=== PATIENT | female | born 1990 | race Caucasian/White ===

== ENCOUNTER → 2017-10-10 | Outpatient (CLI) | payer OTHER ==
[~2017-10-10] MED LIST: ALBU90OI INH; AMOCLA875 PO; AMOX500 PO; AMPDEX10; AZIT250 PO; BC PILL; BCP; BIRTH CONTOL; CEPH250A; CETI10 PO; CLOM50A PO; CLON.5 PO; CLON1 PO; CODACE30 PO; CRUTCH3 USE; CRUTCH4 USE; DOXY100 PO; DULO30 PO; DULO60; ERYT250 PO; ETHINYL ESTRADIOL; ETONOGESTREL; FAMO20 PO; FLUO20 PO; GUAPSEER PO; HYDACE5 PO; HYDGUAL120 PO; IBUP600 PO; IBUP800 PO; LORA1 PO; METO25ER PO; METO50ER PO; METPHE20 PO; MULVITA; Macrobid 100 M100 MG PO; PHENA100 PO; PRED10 PO; PRED20 PO; QUET200 PO; RXCODACET PO; RXHYDACE PO; SERT50; TRAZ50 PO; [UNRECOGNIZED DRUG - OTHER]
[2017-10-13 15:07] LABS: CHLAMYDIA BY NAA Negative (Negative); GONOCOCCUS BY NAA Negative (Negative); TRICH VAG BY NAA Negative (Negative)
== END | disposition home or self-care (01) ==
LOC: LAB SHORT 14:18 → LAB 14:18
PROVIDERS: Advanced Practice Midwife
DX: Z11.3 Encounter for screening for infections with a predominantly sexual mode of transmission (principal)
CPT/HCPCS: 87491; 87591; 87661

== ENCOUNTER 2018-04-26 08:40 | Inpatient (IN) | payer OTHER ==
[~2018-04-26] VITALS: Ht 170.2 cm; Wt 82.1 kg
[2018-04-26] MEDS ORDERED: ACYC400 PO (14:08)
[2018-04-26] MEDS ORDERED: EXPECTA PRENAT1 EACH PO (14:09)
--- NOTE | 2018-04-26 15:22 | NUR ---
OOB TO BATHROOM BECAME DIZZY, SOHAIL CARE AND SPONGE BATH GIVEN ASSISTED BACK TO BED
--- NOTE | 2018-04-26 17:41 | NUR ---
REPORT TO TEJAL SILVA RN
[2018-04-27 06:13] LABS: Hematocrit 31.8 % (33.0-51.0); Hemoglobin 10.7 g/dL (11.5-16.0); Mean Corpuscular HGB 32.3 pg (26.0-34.0); Mean Corpuscular HGB Conc 33.6 g/dL (31.5-36.5); Mean Corpuscular Volume 96 fL (80-100); Mean Platelet Volume 10.3 fL (9.1-12.4); Platelet Count 197 K/mm3 (150-400); RDW Coefficient Variation 13.2 % (11.7-14.2); RDW Standard Deviation 46.5 fL (35.1-46.3); Red Blood Cell Count 3.31 M/mm3 (3.80-5.20); White Blood Cell Count 17.59 K/mm3 (4.00-11.30)
--- NOTE | 2018-04-27 08:17 | NUR ---
DURING MY ASSESSMENT THIS MORNING I NOTICED THAT PT HAD RED/ SORE NIPPLES. I PROVIDED THE PATIENT WITH EDUCATION REGARDING HEPATITIS C AND TRANSFERRING THE DISEASE TO HER NB THROUGH WITH CRACKED NIPPLES. PT WAS GIVEN FORMULA AND ADVISED TO BREASTFEED THE UNTIL HER NIPPLES ARE HEALED ENOUGH TO CONTINUE . NIPPLE FERGUSON WERE GIVEN ANOTHER FORM OF A BARRIER. LANOLIN AND SOOTHIES AT BEDISDE. PT REPORTED SHE WOULD STILL LIKE TO CONTINUE TO BREASTFEED AFTER EDUCATION WAS PROVIDED.
[2018-04-27] MEDS ORDERED: IBUP800 PO (09:47)
[2018-04-27] MEDS ORDERED: Ferrous Sulfat325 M2 PO (09:48)
--- NOTE | 2018-04-27 13:29 | NUR ---
DISCHARGE INSTRUCTIONS GIVEN. NO QUESTIONS OR CONCERNS AT THIS TIME.
== END 2018-04-27 14:15 | disposition home or self-care (01) | DRG 807 ==
LOC: BC 08:40 → OBS 08:40 → BC 10:11
PROVIDERS: ADMIT Advanced Practice Midwife
PROC: 10E0XZZ Delivery of Products of Conception, External Approach (ICD-10-PCS; principal; 2018-04-26)
PROC: 0HQ9XZZ Repair Perineum Skin, External Approach (ICD-10-PCS; 2018-04-26)
DX: O98.42 Viral hepatitis complicating childbirth (principal); Z37.0 Single live birth; B18.2 Chronic viral hepatitis C; O69.81X0 Labor and delivery complicated by cord around neck, without compression, not applicable or unspecified; O70.0 First degree perineal laceration during delivery; Z3A.41 41 weeks gestation of pregnancy; Z87.891 Personal history of nicotine dependence; Z88.1 Allergy status to other antibiotic agents
CPT/HCPCS: 36415; 85027; J2210; J2590

== ENCOUNTER → 2018-06-08 | Outpatient (CLI) | payer OTHER ==
[~2018-06-08] MED LIST changes: +ACYC400 PO; +EXPECTA PRENAT1 EACH PO; +Ferrous Sulfat325 M2 PO
== END ==
LOC: LAB SHORT 09:34 → LAB 09:34
PROVIDERS: Advanced Practice Midwife
DX: Z01.419 Encounter for gynecological examination (general) (routine) without abnormal findings (principal)
CPT/HCPCS: G0123

== ENCOUNTER → 2018-11-28 | Outpatient (CLI) | payer OTHER | END | disposition home or self-care (01) | LOC: LAB EV 13:52 → LAB SHORT 13:52 | DX: N39.0 Urinary tract infection, site not specified (principal) | CPT/HCPCS: 87086 ==

== ENCOUNTER → 2018-12-05 | Outpatient (CLI) | payer OTHER | END | disposition home or self-care (01) | LOC: LAB SHORT 14:19 → LAB EV 14:19 | DX: B00.9 Herpesviral infection, unspecified (principal) | CPT/HCPCS: 87529 ==

== ENCOUNTER → 2019-02-14 | Outpatient (CLI) | payer OTHER | END | disposition home or self-care (01) | LOC: LAB EV 15:56 → LAB SHORT 15:56 | DX: R31.9 Hematuria, unspecified (principal) | CPT/HCPCS: 87086 ==

== ENCOUNTER → 2019-02-25 | Outpatient (CLI) | payer OTHER ==
[2019-03-04 12:07] LABS: CA OXALATE DIHYDRATE 20 % (.); CA OXALATE MONOHYDR. 30 % (.); CALCIUM PHOSPHATE 50 % (.); COLOR Tan (.); SIZE 7x6x5 mm (.); WEIGHT 100.2 mg (.)
== END | disposition home or self-care (01) ==
LOC: LAB EV 10:11 → LAB SHORT 10:11
PROVIDERS: Family Medicine
DX: N20.0 Calculus of kidney (principal)
CPT/HCPCS: 82360

== ENCOUNTER → 2019-06-17 | Outpatient (CLI) | payer OTHER ==
[2019-06-20 01:09] LABS: CHLAMYDIA TRACHOMATIS, NAA Negative (Negative); NEISSERIA GONORRHOEAE, NAA Negative (Negative)
== END | disposition home or self-care (01) ==
LOC: LAB 14:16 → LAB SHORT 14:16
PROVIDERS: Advanced Practice Midwife
DX: Z11.3 Encounter for screening for infections with a predominantly sexual mode of transmission (principal)
CPT/HCPCS: 87491; 87591

== ENCOUNTER → 2019-08-12 | Outpatient (CLI) | payer OTHER ==
[2019-08-12 15:20] LABS: Source, Urine Clean Catch
[2019-08-12 19:11] LABS: Amorphous Mod (0-Heavy); Bacteria Mod /hpf; Squamous Epithelial Cells Mod /hpf (Few)
[2019-08-12 19:12] LABS: Calcium Oxalate Crystals Few /hpf; Mucus Mod (0-Heavy)
== END | disposition home or self-care (01) ==
LOC: LAB SHORT 10:40 → LAB 10:40
PROVIDERS: Advanced Practice Midwife
DX: R82.90 Unspecified abnormal findings in urine (principal)
CPT/HCPCS: 81015; 87086

== ENCOUNTER 2019-12-31 04:18 | Inpatient (IN) | payer OTHER ==
[~2019-12-31] VITALS: Ht 170.2 cm; Wt 78.6 kg
[2019-12-31 05:16] LABS: BASOPHILS ABSOLUTE AUTO 0.03 K/mm3 (0.00-0.23); BASOPHILS PERCENT AUTO 0 % (0-2); EOSINOPHILS ABSOLUTE AUTO 0.03 K/mm3 (0.00-0.68); EOSINOPHILS PERCENT AUTO 0 % (0-6); Hemoglobin 14.6 g/dL (11.5-16.0); IMMATURE GRAN ABSOLUTE AUTO 0.05 K/mm3 (0.00-0.10); IMMATURE GRAN PERCENT AUTO 0 % (0-1); LYMPHOCYTES ABSOLUTE AUTO 1.39 K/mm3 (0.84-5.20); LYMPHOCYTES PERCENT AUTO 10 % (21-46); MONOCYTES PERCENT AUTO 5 % (4-13); Mean Corpuscular HGB 32.5 pg (26.0-34.0); Mean Corpuscular Volume 96 fL (80-100); Mean Platelet Volume 10.1 fL (9.1-12.4); NEUTROPHILS PERCENT AUTO 84 % (41-73); Platelet Count 187 K/mm3 (150-400); RDW Coefficient Variation 12.5 % (11.7-14.2); RDW Standard Deviation 44.1 fL (35.1-46.3); Red Blood Cell Count 4.49 M/mm3 (3.80-5.20)
--- NOTE | 2019-12-31 07:28 | NUR ---
PT DESIRES A NON MEDICATED AND LOW INTERVENTION AND DELIVERY. PT CONSENT TO 10 MIN OF MONITOR FHTS. PT UNDERSTANDS NB WILL NEED TO BE BATHED SHORTLY AFTER BIRTHED BUT REASSURED HER THAT NB WILL R/T STS WITH HER. PT VERBALIZES UNDERSTANDING. NO QUESTIONS OR CONCERNS. CHE VERY SUPPORTIVE. PT DESIRES TO TAKE A NAP AT THIS TIME.
--- NOTE | 2019-12-31 16:58 | NUR ---
OOB TO BRP, VOIDED. KEON SELF CARE WELL.
--- NOTE | 2019-12-31 17:24 | NUR ---
SK CNM REPORT PT MAY DC HOME IF VS STABLE, VAGINAL BLEEDING IS GOOD AT 4-6 HOURS AFTER DELIVERY AND SHE WILL PUT THE ORDER IN. TELEPHONE ORDER TO CALL IN [employer] THIN LAYTER TO NIPPLES PRN
--- NOTE | 2019-12-31 17:26 | NUR ---
CALLED TO [facility], TALKED TO HARRISON MENG
--- NOTE | 2019-12-31 18:25 | NUR ---
D/C HOME WITH BABY
== END 2019-12-31 18:25 | disposition home or self-care (01) | DRG 806 ==
LOC: BC 04:18 → OBS 04:18 → BC 04:40
PROVIDERS: ADMIT Advanced Practice Midwife
PROC: 10E0XZZ Delivery of Products of Conception, External Approach (ICD-10-PCS; principal; 2019-12-31)
PROC: 10907ZC Drainage of Amniotic Fluid, Therapeutic from Products of Conception, Via Natural or Artificial Opening (ICD-10-PCS; 2019-12-31)
DX: O48.0 Post-term pregnancy (principal); O98.42 Viral hepatitis complicating childbirth; Z37.0 Single live birth; B18.2 Chronic viral hepatitis C; Z3A.40 40 weeks gestation of pregnancy; O71.82 Other specified trauma to perineum and vulva; Z87.891 Personal history of nicotine dependence
CPT/HCPCS: 36415; 85025; 86850; 86900; 86901; J2210

== ENCOUNTER 2021-08-29 20:16 | Emergency (ER) | payer OTHER ==
[~2021-08-29] VITALS: Ht 170.2 cm; Wt 68.0 kg
[2021-08-29 20:48] LABS: Source, Urine Clean Catch
[2021-08-29 20:52] LABS: Appearance, Urine Clear (Clear); Bilirubin, Urine Neg (Neg); Blood, Urine 3+ (Neg); Color, Urine Yellow (P-Yellow); Glucose Qualitative, Urine Neg (Neg); Ketones, Urine Neg (Neg); Leukocyte Esterase, Urine Neg (Neg); Nitrite, Urine Neg (Neg); Protein, Urine 1+ (Neg); Specific Gravity, Urine 1.025 (1.003-1.022); Urobilinogen, Urine NORM (Normal)
[2021-08-29 20:59] LABS: BASOPHILS ABSOLUTE AUTO 0.03 K/mm3 (0.00-0.23); BASOPHILS PERCENT AUTO 0 % (0-2); EOSINOPHILS ABSOLUTE AUTO 0.01 K/mm3 (0.00-0.68); EOSINOPHILS PERCENT AUTO 0 % (0-6); Hematocrit 41.4 % (33.0-51.0); Hemoglobin 14.1 g/dL (11.5-16.0); IMMATURE GRAN ABSOLUTE AUTO 0.05 K/mm3 (0.00-0.10); IMMATURE GRAN PERCENT AUTO 0 % (0-1); LYMPHOCYTES ABSOLUTE AUTO 1.62 K/mm3 (0.84-5.20); LYMPHOCYTES PERCENT AUTO 11 % (21-46); MONOCYTES ABSOLUTE AUTO 0.62 K/mm3 (0.16-1.47); MONOCYTES PERCENT AUTO 4 % (4-13); Mean Corpuscular HGB 30.7 pg (26.0-34.0); Mean Corpuscular HGB Conc 34.1 g/dL (31.5-36.5); Mean Corpuscular Volume 90 fL (80-100); Mean Platelet Volume 9.7 fL (9.1-12.4); NEUTROPHILS ABSOLUTE AUTO 13.09 K/mm3 (1.96-9.15); NEUTROPHILS PERCENT AUTO 85 % (41-73); Platelet Count 251 K/mm3 (150-400); RDW Coefficient Variation 12.9 % (11.7-14.2); RDW Standard Deviation 42.1 fL (35.1-46.3); Red Blood Cell Count 4.59 M/mm3 (3.80-5.20); White Blood Cell Count 15.42 K/mm3 (4.00-11.30)
[2021-08-29 21:01] LABS: Bacteria Few /hpf; Squamous Epithelial Cells Mod /hpf (Few); White Blood Cells, Urine 0-2 /hpf (0-5)
[2021-08-29 21:21] LABS: Albumin, Blood 3.7 g/dL (3.4-5.0); Albumin/Globulin Ratio 0.9 (0.8-1.8); Bilirubin, Total 1.1 mg/dL (0.1-1.0); Bun/Creatinine Ratio 24.7 (12.0-20.0); Calcium, Blood 8.8 mg/dL (8.5-10.1); Creatinine, Blood 0.77 mg/dL (0.40-1.00); Globulin, Blood 3.9 g/dL (2.2-4.0); Potassium, Blood 3.8 mmol/L (3.5-5.5); Total Protein, Blood 7.6 g/dL (6.4-8.2)
[2021-08-30] MEDS ORDERED: ONDA4ODT MM (00:04)
== END 2021-08-30 00:15 | disposition home or self-care (01) ==
LOC: ER 20:16
PROVIDERS: Student in an Organized Health Care Education/Training Program
DX: N13.2 Hydronephrosis with renal and ureteral calculous obstruction (principal); Z88.1 Allergy status to other antibiotic agents; Z87.891 Personal history of nicotine dependence
CPT/HCPCS: 36415; 74176; 80053; 81001; 84703; 85025; 96374; 99284-25; A9270; J1885

== ENCOUNTER → 2022-02-14 | Outpatient (CLI) | payer OTHER ==
[~2022-02-14] MED LIST changes: +ONDA4ODT MM
[2022-02-15 15:10] LABS: HPV 16 Negative (Negative); HPV 18 Negative (Negative); HPV OTHER HR TYPES Negative (Negative)
== END ==
LOC: RAD SHORT 13:40 → LAB 13:40 → LAB SHORT 13:40
PROVIDERS: Advanced Practice Midwife
DX: Z01.419 Encounter for gynecological examination (general) (routine) without abnormal findings (principal)
CPT/HCPCS: 87624; G0123

== ENCOUNTER 2022-04-07 15:18 | Emergency (ER) | payer OTHER ==
[~2022-04-07] VITALS: Ht 170.2 cm; Wt 72.6 kg
[2022-04-07 16:04] LABS: Source, Urine Clean Catch
[2022-04-07 16:07] LABS: Appearance, Urine Clear (Clear); Bilirubin, Urine Neg (Neg); Blood, Urine Neg (Neg); Color, Urine Yellow (P-Yellow); Glucose Qualitative, Urine Neg (Neg); Ketones, Urine 2+ (Neg); Leukocyte Esterase, Urine Neg (Neg); Nitrite, Urine Neg (Neg); Protein, Urine Neg (Neg); Specific Gravity, Urine 1.005 (1.003-1.022); Urobilinogen, Urine NORM (Normal)
[2022-04-07] MEDS ORDERED: PRENATAL TABLE1 EAC2 PO (17:22)
== END 2022-04-07 17:30 | disposition home or self-care (01) ==
LOC: ER 15:18
PROVIDERS: Physician Assistant
DX: N13.2 Hydronephrosis with renal and ureteral calculous obstruction (principal); Z88.1 Allergy status to other antibiotic agents; Z79.899 Other long term (current) drug therapy; Z87.891 Personal history of nicotine dependence
CPT/HCPCS: 76770; 81003; 81025

== ENCOUNTER → 2022-08-01 | Outpatient (CLI) | payer OTHER ==
[~2022-08-01] MED LIST changes: +PRENATAL TABLE1 EAC2 PO
== END | disposition home or self-care (01) ==
LOC: LAB SHORT 15:42 → LAB 15:42
DX: O09.92 Supervision of high risk pregnancy, unspecified, second trimester (principal)
CPT/HCPCS: 87081; 87150

== ENCOUNTER 2022-09-08 07:02 | Inpatient (IN) | payer OTHER ==
[~2022-09-08] VITALS: Ht 170.2 cm; Wt 82.7 kg
[2022-09-08] VITALS (11 sets, daily range): BP systolic 107–133; BP diastolic 61–85
--- NOTE | 2022-09-08 07:24 | NUR ---
PT DECLINES IV. DESIRES VERY LOW INTERVENTION LABOR, DELIVERY AND POST .
--- NOTE | 2022-09-08 09:10 | NUR ---
QBL OF 1000CC AND HEMORRHAGE ALGORTITHM DISCUSSED WITH LIS AND PT. PT WILL LET RN KNOW IF SHE WILL ALLOW ANY OF THE INTERVENTIONS. CURRENTLY STILL DECLINES IV AND DOES NOT WANT Q5 MIN VS, BUT IS ALLOWING INTERMITENT VS. IS ALLOWING FUNDAL MASSAGES. DISCUSSED POTENTIAL OF 2 IVS AND LABS IF REACHES STAGE 3; PT WILL THINK ABOUT THIS.
--- NOTE | 2022-09-08 18:00 | NUR ---
FADY WATKINS CNM AT PT BEDSIDE DISCUSSING DISCHARGE. AT THIS TIME FADY AND DR HOGAN ARE NOT DISCHARGING PT. PT WANTS TO GO HOME, UNDERSTANDS WHY THE PROVIDERS WANT HER TO STAY, BUT WANTS TO SIGN AMA AND LEAVE. RISK OF DELAYED POST HEMORRHAGE, SIGNIFICANT ANEMIA LEADING TO LOSS OF CONSCIOUNESS OR POTENTIALLY WERE ALL DISCUSSED WITH PT; SHE HAS DECIDED SHE STILL WANTS TO GO HOME AND SIGNED THE AMA FORM. POST FOLLOW UP SCHEDULED FOR 09/09/22 AT 1400 TO BE SEEN BY VIANEY MAN AND HAVE HER CBC DRAWN AT THAT TIME.
--- NOTE | 2022-09-08 18:35 | NUR ---
POST DISCHARGE INSTRUCTIONS REVIEWED AND SIGNED. BANDS MATCHED WITH . PT TO LEAVE AMA.
--- NOTE | 2022-09-09 15:22 | NUR ---
NO SHOW FOR PPFU - [facility] NOTIFIED
== END 2022-09-08 18:35 | disposition home or self-care (01) | DRG 806 ==
LOC: OBS 07:02 → BC 07:06 → OBS 07:20 → BC 07:28
PROVIDERS: ADMIT Advanced Practice Midwife
PROC: 10E0XZZ Delivery of Products of Conception, External Approach (ICD-10-PCS; principal; 2022-09-08)
PROC: 0HQ9XZZ Repair Perineum Skin, External Approach (ICD-10-PCS; 2022-09-08)
DX: O48.0 Post-term pregnancy (principal); O72.1 Other immediate postpartum hemorrhage; Z37.0 Single live birth; O98.413 Viral hepatitis complicating pregnancy, third trimester; B18.2 Chronic viral hepatitis C; O77.0 Labor and delivery complicated by meconium in amniotic fluid; O70.0 First degree perineal laceration during delivery; Z87.442 Personal history of urinary calculi; Z88.8 Allergy status to other drugs, medicaments and biological substances; Z3A.41 41 weeks gestation of pregnancy; Z79.899 Other long term (current) drug therapy
CPT/HCPCS: A9270; J2210; J2590

== ENCOUNTER → 2023-06-07 | Outpatient (CLI) | payer OTHER | LOC: LAB SHORT 10:49 → LAB 10:49 | DX: L72.3 Sebaceous cyst (principal) | CPT/HCPCS: 87070; 87075; 87205 ==

== ENCOUNTER → 2024-06-14 | Outpatient (CLI) | payer OTHER ==
[2024-06-17 18:59] LABS: HCV QNT BY NAAT (IU/ML) Not Detected; HCV QNT BY NAAT (LOG IU/ML) Not Detected; HCV QNT BY NAAT INTERP Not Detected (Not Detected)
== END ==
LOC: LAB SHORT 11:39 → LAB 11:39
PROVIDERS: Student in an Organized Health Care Education/Training Program
DX: B18.2 Chronic viral hepatitis C (principal)
CPT/HCPCS: 87522